=== PATIENT | male | born 1970 | race Caucasian/White ===

== ENCOUNTER 2019-02-24 14:24 | Emergency (ER) | payer SELFPAY ==
[~2019-02-24] VITALS: Ht 172.7 cm; Wt 112.0 kg
[2019-02-24 15:04] VITALS: BP 123/85
== END 2019-02-24 22:17 | disposition left against medical advice (07) ==
LOC: ER 14:24
DX: R10.11 Right upper quadrant pain (principal); Z53.21 Procedure and treatment not carried out due to patient leaving prior to being seen by health care provider